=== PATIENT | female | born 1965 | race Caucasian/White ===

== ENCOUNTER → 2017-06-13 | Outpatient (CLI) | payer OTHER ==
[~2017-06-13] MED LIST: ALLEGRA ALLERGY60 MG PO; ALLER-EASE180 MG PO; APAP500 PO; CALCIUM 600 +1 EAC1 PO; ESTROVEN MAX400 MCG PO; Hydrocodone-Apap 5-325 Tablet PO; IBUPROFEN 600600 M1 PO; MULTIVITAMINS PO; NORCO 5-325 TA1 EACH PO; PROBIOTIC1 EAC1 PO; SYNTHROID125 MCG PO; VITAMIN D-32000 UNIT PO
== END ==
LOC: RAD 13:26
DX: Z12.31 Encounter for screening mammogram for malignant neoplasm of breast (principal)

== ENCOUNTER 2017-11-17 09:46 | Emergency (ER) | payer OTHER ==
[~2017-11-17] VITALS: Ht 165.1 cm; Wt 92.1 kg
[~2017-11-17 09:46] MED LIST changes: -ESTROVEN MAX400 MCG PO
[2017-11-17] MEDS ORDERED: ESTROVEN MAX400 MCG PO (09:55)
[2017-11-17 10:40] VITALS: BP 131/81
== END 2017-11-17 18:48 | disposition home or self-care (01) ==
LOC: ER 09:46
DX: S61.012A Laceration without foreign body of left thumb without damage to nail, initial encounter (principal); Z90.89 Acquired absence of other organs; Z88.2 Allergy status to sulfonamides; Z88.1 Allergy status to other antibiotic agents; W26.0XXA Contact with knife, initial encounter; Y92.89 Other specified places as the place of occurrence of the external cause; Y93.89 Activity, other specified; Y99.8 Other external cause status

== ENCOUNTER → 2018-09-02 | Outpatient (CLI) | payer OTHER ==
[~2018-09-02] MED LIST changes: +ESTROVEN MAX400 MCG PO
== END ==
LOC: RAD 15:51
DX: M47.815 Spondylosis without myelopathy or radiculopathy, thoracolumbar region (principal); G89.29 Other chronic pain; Q76.49 Other congenital malformations of spine, not associated with scoliosis; Z88.2 Allergy status to sulfonamides; Z88.8 Allergy status to other drugs, medicaments and biological substances

== ENCOUNTER → 2019-03-06 | Outpatient (CLI) | payer OTHER | LOC: RAD 13:56 | DX: Z12.31 Encounter for screening mammogram for malignant neoplasm of breast (principal) ==

== ENCOUNTER → 2020-03-10 | Outpatient (CLI) | payer OTHER | LOC: RAD 14:56 | PROVIDERS: ATTEND Family Medicine | DX: Z12.31 Encounter for screening mammogram for malignant neoplasm of breast (principal) ==

== ENCOUNTER 2020-10-13 05:59 | Emergency (ER) | payer OTHER ==
[~2020-10-13] VITALS: Ht 165.1 cm; Wt 86.2 kg
[2020-10-13] MEDS ORDERED: CENTRUM SILVER1 EAC5 PO (06:31)
[2020-10-13] MEDS ORDERED: PROBIOTIC1 EAC3 PO (06:31)
[2020-10-13] MEDS ORDERED: GALZIN50 MG PO (06:32)
[2020-10-13] MEDS ORDERED: CALCIUM500 MG PO (06:32)
[2020-10-13] MEDS ORDERED: MAGNESIUM250 M1 PO (06:32)
[2020-10-13] MEDS ORDERED: VITAMIN D325 MC5 PO (06:33)
[2020-10-13 07:45] LABS: ABSOLUTE NEUTROPHILS 7.6 thou/uL (1.4-8.2); BASOPHILS 0.4 % (0.0-2.0); HEMATOCRIT 45.1 % (37.0-47.0); HEMOGLOBIN 14.7 gm/dL (12.0-15.0); MCH 28.4 pg (26.0-34.0); MCHC 32.5 g/dL (28.0-37.0); MCV 87.4 fL (80.0-100.0); MONOCYTES 5.8 % (1.0-8.0); PLATELET COUNT 229 thou/uL (150-400); POLYS 79.8 % (36.0-66.0); RBC 5.16 mil/uL (4.20-5.00); RDW 13.4 % (10.5-14.5); WBC 9.5 thou/uL (4.0-11.0)
[2020-10-13 07:53] LABS: CALCIUM 9.6 mg/dL (8.5-10.1); CREATININE 0.8 mg/dL (0.6-1.0); POTASSIUM 4.3 mmol/L (3.5-5.1)
[2020-10-13 08:01] LABS: TOTAL BILIRUBIN 0.2 mg/dL (0.2-1.0); TOTAL PROTEIN 7.7 g/dL (6.4-8.2)
[2020-10-13 08:45] LABS: URINE BILIRUBIN NEGATIVE (Negative); URINE BLOOD NEGATIVE (Negative); URINE CLARITY CLEAR; URINE COLOR YELLOW; URINE GLUCOSE-RANDOM* NEGATIVE (Negative); URINE KETONES NEGATIVE (Negative); URINE LEUKOCYTES-REFLEX 2+ (Negative); URINE NITRITE-REFLEX NEGATIVE (Negative); URINE PROTEIN (DIPSTICK) NEGATIVE (Negative); URINE SPECIFIC GRAVITY 1.025 (1.005-1.035); URINE UROBILINOGEN 0.2 E.U./dl (0.2-1.0)
[2020-10-13 08:58] LABS: CASTS None Seen /LPF (None Seen); CRYSTALS None Seen /LPF (None Seen); SQUAMOUS 4-10 Moderate /LPF (0-3)
[2020-10-13 08:59] LABS: BACTERIA-REFLEX 1-9 Few /HPF (None Seen); URINE RBC None Seen /HPF (NONE SEEN); URINE WBC-REFLEX 6-15 Few /HPF (0-5)
[2020-10-13] MEDS ORDERED: CEPHALEXIN500 MG PO (09:12)
[2020-10-13 09:25] VITALS: BP 167/70
== END 2020-10-13 09:20 | disposition home or self-care (01) ==
LOC: ER 05:59
PROVIDERS: Emergency Medicine
DX: R10.9 Unspecified abdominal pain (principal); E03.9 Hypothyroidism, unspecified; Z90.49 Acquired absence of other specified parts of digestive tract; Z88.2 Allergy status to sulfonamides; Z88.8 Allergy status to other drugs, medicaments and biological substances

== ENCOUNTER → 2020-10-22 | Outpatient (CLI) | payer OTHER ==
[~2020-10-22] MED LIST changes: +CALCIUM500 MG PO; +CENTRUM SILVER1 EAC5 PO; +CEPHALEXIN500 MG PO; +GALZIN50 MG PO; +MAGNESIUM250 M1 PO; +PROBIOTIC1 EAC3 PO; +VITAMIN D325 MC5 PO
[2020-10-22 10:05] LABS: ABSOLUTE NEUTROPHILS 3.1 thou/uL (1.4-8.2); BASOPHILS 1.4 % (0.0-2.0); EOSINOPHILS 0.1 % (0.0-3.0); HEMATOCRIT 43.3 % (37.0-47.0); HEMOGLOBIN 14.4 gm/dL (12.0-15.0); LYMPHOCYTES 29.3 % (24.0-44.0); MCH 28.8 pg (26.0-34.0); MCHC 33.2 g/dL (28.0-37.0); MCV 86.7 fL (80.0-100.0); MONOCYTES 6.7 % (1.0-8.0); PLATELET COUNT 220 thou/uL (150-400); POLYS 62.5 % (36.0-66.0); RDW 13.9 % (10.5-14.5); WBC 4.9 thou/uL (4.0-11.0)
[2020-10-22 10:28] LABS: ALBUMIN 4.1 g/dL (3.4-5.0); ANION GAP 8 mmol/L (7-16); BUN 18 mg/dL (7-18); CALCIUM 9.5 mg/dL (8.5-10.1); CHLORIDE 104 mmol/L (98-107); CHOLESTEROL 172 mg/dL (<200); CO2 31 mmol/L (21-32); CREATININE 0.8 mg/dL (0.6-1.0); GLUCOSE 95 mg/dL (74-106); HDL CHOLESTEROL 48 mg/dL (>40); LDL CHOLESTEROL 90 mg/dL (<100); POTASSIUM 4.1 mmol/L (3.5-5.1); SGOT 21 U/L (15-37); SGPT 35 U/L (30-65); SODIUM 143 mmol/L (136-145); TC:HDL 3.6 Ratio (Not establshd); TOTAL BILIRUBIN 0.4 mg/dL (0.2-1.0); TOTAL PROTEIN 7.7 g/dL (6.4-8.2); TRIGLYCERIDE 173 mg/dL (<150); VLDL 35 mg/dL (<40)
[2020-10-23 00:06] LABS: GLYCOHEMOGLOBIN (HGB A1C) 5.8 % (4.8-5.6)
== END ==
LOC: LAB 09:15
PROVIDERS: ATTEND Family Medicine
DX: E78.5 Hyperlipidemia, unspecified (principal); E55.9 Vitamin D deficiency, unspecified; R73.9 Hyperglycemia, unspecified; E03.9 Hypothyroidism, unspecified

== ENCOUNTER → 2021-01-03 | Outpatient (CLI) | payer OTHER ==
--- NOTE | 2021-01-09 21:14 | SLE ---
[facility] [place] [address] POLYSOMNOGRAPHY STUDY Name: CHRISTELLE BORDEN Room #: REG [facility]..#: [id number] Admission: 01/03/21 Attend Phys: Reynaldo Novak MD Discharge: Date of : 65 Report #: [id number] THIS REPORT FOR: cc: Fadia Olguin MD,Reynaldo Damico MD, MD ~ cc: Fadia Olguin MD DATE OF SERVICE: 01/03/2021 SLEEP STUDY REFERRING PHYSICIAN: Dr. Fadia Olguin. The patient is 55 years old who weighs 190 pounds with a BMI of 31.6. The patient's [place] score was 14. The patient underwent diagnostic sleep study performed at [place] sleep lab. During the night study, the patient spent 429 minutes in bed and slept for 413 minutes with a sleep efficiency of 96%. Sleep latency was 3.5 minutes with a REM latency of 281 minutes. Sleep architecture showed increased stage I and stage II sleep, reduced slow wave and reduced REM sleep, which was only 3.6% of total sleep time. During the night of the study, the patient had 9 obstructive apneas, 2 mixed apneas and 109 central apneas. The patient also had 46 hypopneas. The patient's AHI was 24 per hour with a REM AHI of 12 per hour and a supine AHI of 99 per hour. EKG monitoring revealed an average heart rate of 59 beats per minute. No sustained arrhythmias observed. PLMS were seen at an index of 14.8 per hour and 3.5 per hour caused EEG arousals. Nocturnal oximetry study revealed an average oxygen saturation of 97% with a lowest of 87%. Less than 1 minute was spent with oxygen saturation less than 89%. Due to low AHI, the patient did not meet the split night criteria for CPAP initiation. IMPRESSION: 1. Moderate sleep apnea at an AHI of 24 per hour. The patient's sleep apnea was a combination of central and obstructive. 2. Mild PLMS. [facility] [address] [place] [address] POLYSOMNOGRAPHY STUDY Name: CHRISTELLE BORDEN Room #: REG [facility].#: [id number] Admission: 01/03/21 Attend Phys: Reynaldo Novak MD Discharge: Date of : 65 Report #: [id number] 3. No clinically significant nocturnal hypoxia. RECOMMENDATIONS: 1. The patient is clinically symptomatic and has mixed sleep apnea. The patient would benefit from return to the sleep lab for CPAP titration study. 2. Once the patient is optimally treated, then follow up in 4-6 weeks to assess compliance and to document clinical improvement. 3. Weight loss is advised. 4. Avoid B[employer] depressants. 5. Cautioned regarding driving until symptoms of sleep apnea have resolved with the use of CPAP. <ELECTRONICALLY SIGNED> By: Reynaldo Novak MD 01/09/21 2114 [id number] Reynaldo Novak MD /ariana
== END ==
LOC: SLEEPLAB 16:24
PROVIDERS: ATTEND Internal Medicine Critical Care Medicine
DX: Z20.822 Contact with and (suspected) exposure to COVID-19 (principal); G47.30 Sleep apnea, unspecified

== ENCOUNTER → 2021-02-14 | Outpatient (CLI) | payer OTHER ==
--- NOTE | 2021-02-28 15:11 | SLE ---
[facility] [place] [address] POLYSOMNOGRAPHY STUDY Name: CHRISTELLE BORDEN Room #: REG [facility] ..#: [id number] Admission: 02/14/21 Attend Phys: Reynaldo Novak MD Discharge: Date of : 65 Report #: [id number] THIS REPORT FOR: cc: Fadia Olguin MD, Nora P. MD Khan, Aman U. MD ~ cc: Valdemar Murillo MD DATE OF SERVICE: 02/14/2021 ATTENDING PHYSICIAN: Dr. Valdemar Murillo. The patient is a 55 years old who weighs 190 pounds with a BMI of 31.6. The patient had a previous sleep study and was found to have moderate sleep apnea. It was a combination of obstructive and central apneas. The patient was referred for in-lab CPAP titration study. During the night study, the patient spent 469 minutes in bed and slept for 395 minutes with a sleep efficiency of 84%. Sleep latency was 9.5 minutes with a REM latency of 342 minutes. Sleep architecture showed increased stage I and stage II sleep, but absent slow wave and reduced REM sleep. EKG monitoring revealed no sustained arrhythmias. Average heart rate was 60 beats per minute. No significant PLM seen. The patient was started on CPAP at 5 cm water and titrated up to 10 cm of water. At the final pressure, the patient slept for 182 minutes. The patient had supine as well as REM sleep. The patient had complete resolution of obstructive and mixed apneas as well as hypopneas. The patient had 25 central apneas. The patient's AHI was 10.9 per hour. The patient's oxygen saturations remained above 90%. Central apneas tend to improve over a period of time. IMPRESSION: 1. Sleep apnea diagnosed by previous sleep study. 2. No clinically significant periodic limb movements. RECOMMENDATIONS: 1. CPAP at 10 cm of water should be used on a nightly basis. The patient did have central apneas at this pressure which tend to improve over the next several months. I would recommend review of the download data in the next 30 days. If the patient's AHI remains more than 10 per hour and if it is predominantly central apneas, then consider changing the patient to BiPAP with a backup rate. 2. Followup in 4-6 weeks as recommended above. 3. Avoid [employer] depressants. [facility] [address] [place] [address] POLYSOMNOGRAPHY STUDY Name: CHRISTELLE BORDEN Room #: REG [facility] Tabatha#: [id number] Admission: 02/14/21 Attend Phys: Reynaldo Novak MD Discharge: Date of : 65 Report #: [id number] 4. Cautioned regarding driving until symptoms of sleep apnea resolve with the above recommendations. <ELECTRONICALLY SIGNED> By: Reynaldo Novak MD 02/28/21 1511 [id number] Reynaldo Novak MD /ariana
== END ==
LOC: SLEEPLAB 09:30
PROVIDERS: ATTEND Internal Medicine Critical Care Medicine
DX: G47.39 Other sleep apnea (principal); Z20.822 Contact with and (suspected) exposure to COVID-19

== ENCOUNTER → 2021-03-17 | Outpatient (CLI) | payer OTHER | LOC: BC 08:31 | PROVIDERS: ATTEND Family Medicine | DX: Z12.31 Encounter for screening mammogram for malignant neoplasm of breast (principal) ==

== ENCOUNTER → 2021-04-22 | Outpatient (CLI) | payer OTHER ==
[2021-04-22 10:15] LABS: ABSOLUTE NEUTROPHILS 3.6 thou/uL (1.4-8.2); BASOPHILS 1.1 % (0.0-2.0); EOSINOPHILS 0.1 % (0.0-3.0); HEMATOCRIT 43.9 % (37.0-47.0); HEMOGLOBIN 14.2 gm/dL (12.0-15.0); LYMPHOCYTES 26.6 % (24.0-44.0); MCH 28.3 pg (26.0-34.0); MCHC 32.4 g/dL (28.0-37.0); MCV 87.2 fL (80.0-100.0); MONOCYTES 7.3 % (1.0-8.0); PLATELET COUNT 219 thou/uL (150-400); POLYS 64.9 % (36.0-66.0); RBC 5.04 mil/uL (4.20-5.00); RDW 13.4 % (10.5-14.5); WBC 5.6 thou/uL (4.0-11.0)
[2021-04-22 13:08] LABS: ALBUMIN 3.9 g/dL (3.4-5.0); ANION GAP 10 mmol/L (7-16); BUN 20 mg/dL (7-18); CALCIUM 9.3 mg/dL (8.5-10.1); CHLORIDE 106 mmol/L (98-107); CO2 26 mmol/L (21-32); CREATININE 0.9 mg/dL (0.6-1.0); GLUCOSE 96 mg/dL (74-106); POTASSIUM 4.2 mmol/L (3.5-5.1); SGOT 23 U/L (15-37); SGPT 25 U/L (14-59); SODIUM 142 mmol/L (136-145); TOTAL BILIRUBIN 0.3 mg/dL (0.2-1.0); TOTAL PROTEIN 7.2 g/dL (6.4-8.2)
[2021-04-22 14:40] LABS: CHOLESTEROL 132 mg/dL (<200); HDL CHOLESTEROL 50 mg/dL (>40); LDL CHOLESTEROL 63 mg/dL (<100); TC:HDL 2.6 Ratio (Not establshd); TRIGLYCERIDE 96 mg/dL (<150); VLDL 19 mg/dL (<40)
[2021-04-23 00:06] LABS: GLYCOHEMOGLOBIN (HGB A1C) 5.6 % (4.8-5.6)
== END ==
LOC: LAB 09:15
PROVIDERS: ATTEND Family Medicine
DX: E78.5 Hyperlipidemia, unspecified (principal); E55.9 Vitamin D deficiency, unspecified; E03.9 Hypothyroidism, unspecified; R73.9 Hyperglycemia, unspecified